=== PATIENT | female | born 1985 | race Two or more races ===

== ENCOUNTER 2025-01-31 13:20 | Day surgery (SDC) | payer BC, SELFPAY ==
[2025-01-29 11:25] LABS: Basophils # (Auto) 0.1 Thou/mm3 (0.0-0.2); Basophils % (Auto) 2 % (0-2.5); Eosinophils # (Auto) 0.2 Thou/mm3 (0.0-0.5); Eosinophils % (Auto) 3 % (0-10); Hematocrit 36.3 % (36.0-46.0); Hemoglobin 11.4 g/dL (12.0-16.0); Immature Granulocytes Auto 0.02 Thou/mm3 (0.00-0.00); Lymphocytes # (Auto) 1.9 Thou/mm3 (1.0-4.8); Lymphocytes % (Auto) 31 % (10-50); Mean Corpuscular HGB Conc 31.4 g/dl (31.0-37.0); Mean Corpuscular Hemoglobin 23.5 pg (25.0-35.0); Mean Corpuscular Volume 75 fL (80-100); Monocytes # (Auto) 0.5 Thou/mm3 (0.0-0.8); Monocytes % (Auto) 8 % (0-12); Neutrophils # (Auto) 3.4 Thou/mm3 (1.8-7.7); Neutrophils % (Auto) 56 % (37-80); Nucleated Red Blood Cell # 0.00 Thou/mm3 (0.00-0.00); Nucleated Red Blood Cell % 0 /100 WBC (0); Platelet Count 419 Thou/mm3 (140-440); RDW Standard Deviation 45.6 fL (36.4-46.3); Red Blood Count 4.86 Miln/mm3 (4.00-5.20); White Blood Count 6.1 Thou/mm3 (3.6-11.0)
[2025-01-29 11:30] LABS: Alanine Aminotransferase 12 U/L (10-49); Albumin, Serum 4.3 gm/dL (3.5-5.0); Albumin/Globulin Ratio 1.6 (1.2-2.2); Alkaline Phosphatase 63 U/L (46-116); Anion Gap 10 (7-16); Aspartate Amino Transferase 13 U/L (0-34); BUN/Creatinine Ratio 11 Ratio (12-20); Bilirubin,Total 0.5 mg/dL (0.3-1.2); Blood Urea Nitrogen 9 mg/dL (9-23); Calcium 9.1 mg/dL (8.3-10.6); Calcium (Corrected) 9.1 mg/dL (8.5-10.1); Carbon Dioxide 28.4 mMol/L (20.0-31.0); Chloride 105 mMol/L (98-107); Creatinine (Component) 0.8 mg/dL (0.6-1.3); Globulin 2.7 gm/dL (2.3-3.5); Glucose 105 mg/dL (74-106); Osmolality,Calculated 283 (275-295); Potassium 4.2 mMol/L (3.4-5.1); Sodium 143 mMol/L (136-145); Total Protein 7.0 gm/dL (5.7-8.2); eGFR > 60 See Note
[2025-01-29 11:32] LABS: INR 1.0 (0.9-1.3); Partial Thromboplastin Time 26.1 Seconds (22.0-36.0); Prothrombin Time 10.9 Seconds (9.0-12.2)
[2025-01-30 13:02] VITALS: BMI 42.6
--- NOTE | 2025-01-31 13:46 | SUR.PREOP ---
1330 AT BEDSIDE. PATIENT HAS QUESTIONS REGARDING SEDATION/ANESTHESIA FOR SCHEDULED COLONOSCOPY TODAY. PATIENT EXPRESSES HER FRUSTRATIONS ABOUT MAKING THE DECISION OF HAVING THE PROCEDURE DONE UNDER MAC AFTER THE PATIENT HAD TOLD HIM SHE WANTED TO LOOK INTO IT AND MAKE THE DECISION HERSELF. TELLS THE PATIENT THAT IT IS NOT SET IN STONE AND THAT SHE CAN STILL MAKE THE DECISION. PATIENT SAYS SHE IS OKAY TO PROCEED WITH MAC BUT THAT SHE JUST WANTED TO MAKE SURE HE KNEW THAT SHE WAS UPSET FOR MAKING THE DECISION FOR HER AND NOT GIVING HER THE OPTION. ALL PATIENT QUESTIONS ANSWERED BY .
[2025-01-31 13:53] VITALS: BP 147/101; PULSE 85; RESP 18; TEMP 36.1; O2SAT 99; BMI 41.8
[2025-01-31] MEDS: RINGERS LACTATED 1000 ML 1,000 ML 100 ML IV (15:07)
[2025-01-31 15:27] VITALS: BP 156/104; PULSE 79; RESP 15; TEMP 36.6; O2SAT 96
[2025-01-31 15:37] VITALS: BP 135/97; PULSE 80; RESP 14; O2SAT 97
[2025-01-31 15:47] VITALS: BP 145/94; PULSE 81; RESP 19; O2SAT 96
[2025-01-31 15:57] VITALS: BP 148/92; PULSE 80; RESP 17; O2SAT 99
== END 2025-01-31 16:15 | disposition home or self-care (01) ==
PROVIDERS: PCP Nurse Practitioner; Referring Provider Surgery; Visit Provider Surgery
PROC: 0DBE8ZX Excision of Large Intestine, Via Natural or Artificial Opening Endoscopic, Diagnostic (ICD-10-PCS; CPT 45380; principal; 2025-01-31 14:15)
DX: Z12.11 Encounter for screening for malignant neoplasm of colon (principal); Z80.0 Family history of malignant neoplasm of digestive organs
CPT/HCPCS: 45378; 36415; 80053; 81025; 85025; 85610; 85730; J7120